=== PATIENT | female | born 1955 ===

== ENCOUNTER 2023-02-22 11:21 | Inpatient (IN) | payer OTHER ==
[~2023-02-22] VITALS: Ht 172.7 cm; Wt 54.0 kg
[2023-02-23] MEDS ORDERED: DICLO PO (14:32)
[2023-02-23] MEDS ORDERED: ACID REDUCER20 M1 PO (14:33)
[2023-02-23] MEDS ORDERED: ALDACTONE25 MG PO (14:33)
[2023-02-23] MEDS ORDERED: CITALOPRAM HBR20 MG PO (14:33)
[2023-02-28] MEDS ORDERED: OMEPRAZOLE20 MG (08:47)
[2023-02-28] MEDS ORDERED: DICLOFENAC SODI50 MG (08:48)
== END 2023-03-03 16:54 | disposition home or self-care (01) | DRG 331 ==
LOC: O/R 02-28 06:18 → SURH 02-28 06:18 → SURG 02-28 10:30 → SURH 02-28 11:52
PROVIDERS: ADMIT Surgery; ATTEND Surgery
PROC: 0DBL4ZZ Excision of Transverse Colon, Percutaneous Endoscopic Approach (ICD-10-PCS; 2023-02-28)
PROC: 07BC4ZX Excision of Pelvis Lymphatic, Percutaneous Endoscopic Approach, Diagnostic (ICD-10-PCS; 2023-02-28)
PROC: 0DBM4ZZ Excision of Descending Colon, Percutaneous Endoscopic Approach (ICD-10-PCS; principal; 2023-02-28 10:30)
DX: D12.4 Benign neoplasm of descending colon (principal); D37.4 Neoplasm of uncertain behavior of colon; R59.0 Localized enlarged lymph nodes

== ENCOUNTER 2024-05-03 11:34 | Outpatient (CLI) | payer OTHER ==
[~2024-05-03 11:34] MED LIST: ACID REDUCER20 M1 PO; ALDACTONE25 MG PO; CITALOPRAM HBR20 MG PO; DICLO PO; DICLOFENAC SODI50 MG; OMEPRAZOLE20 MG
== END 2024-05-03 11:35 | disposition home or self-care (01) ==
LOC: LAB 11:34
DX: H16.011 Central corneal ulcer, right eye (principal)

== ENCOUNTER 2024-07-19 08:39 | Outpatient (CLI) | payer OTHER ==
[2024-07-23 06:04] LABS: Result I Yeast observed (.)
== END 2024-07-19 08:40 | disposition home or self-care (01) ==
LOC: LAB 08:39
DX: T86.842 Corneal transplant infection (principal)

== ENCOUNTER 2024-07-22 12:08 | Outpatient (CLI) | payer OTHER | END 2024-07-22 12:09 | disposition home or self-care (01) | LOC: LAB 12:08 | DX: H16.141 Punctate keratitis, right eye (principal); T86.842 Corneal transplant infection ==

== ENCOUNTER → 2024-08-09 09:32 | Outpatient (CLI) | payer OTHER | END | disposition home or self-care (01) | LOC: LAB 09:32 | DX: H16.141 Punctate keratitis, right eye (principal) ==